=== PATIENT | female | born 1965 | race Caucasian/White ===

== ENCOUNTER 2019-03-01 13:04 | Emergency (ER) | payer BC ==
[~2019-03-01] VITALS: Ht 160 cm; Wt 90.0 kg
[~2019-03-01 13:04] MED LIST: CARI350T PO; IBUP-1542 PO; TRAM50TA2 PO
[2019-03-01 13:08] VITALS: BP 132/77; PULSE 87; RESP 18; Ht 160 cm; Wt 90.0 kg
[2019-03-01] MEDS ORDERED: KETOROLAC 30 MG INJ IM STA (15:20)
== END 2019-03-01 15:31 | disposition home or self-care (01) ==
LOC: FTE 13:04
DX: R07.89 Other chest pain (principal)
CPT/HCPCS: 71045; 76705; 96372; J1885; Z7502